=== PATIENT | female | born 1995 | race Caucasian/White ===

== ENCOUNTER → 2020-12-20 | Outpatient (CLI) | payer OTHER ==
[~2020-12-20] MED LIST: ACYCLOVIR400 MG PO; PREDNISONE20 MG PO; VALTREX1000 MG PO
== END ==
LOC: KOH-I 11:36
DX: S42.011A Anterior displaced fracture of sternal end of right clavicle, initial encounter for closed fracture (principal)
CPT/HCPCS: 73000; 73030